=== PATIENT | female | born 1950 ===

== ENCOUNTER 2024-11-03 14:01 | Emergency (ER) | payer MEDICARE, OTHER, SELFPAY ==
[2024-11-03 14:05] VITALS: BP 178/92
--- NOTE | 2024-11-03 15:34 | ED.GENMED ---
History of Present Illness
General
Chief Complaint: Musculo-Skeletal Complaint
Time Seen by Provider: 11/03/24 15:22
History of Present Illness
History of Present Illness:
74-year-old female presents to the emergency department for evaluation of left anterior lower leg pain, she struck the mathew against the end of the car 6 days ago and over the past few days it has become increasingly painful and swollen. She does
nothing entire leg has improved and swelling. She is not on anticoagulants. No fevers
Review of Systems
Review of Systems
Allergies reviewed?: Yes
All Other Systems: ROS reviewed and negative except as documented in HPI and ROS
Phy Exam
Physical Exam
Physical Exam:
GEN: Well appearing, NAD, WDWN
HEENT: Oral mucosa moist, no scleral icterus
Cardiac: Regular rate
Lung: No respiratory distress, no tachypnea
MSK: Swelling and induration of the left anterior lower leg with mild overlying erythema and warmth, moderately tender to palpation. No pain with passive stretch at the left ankle, normal left knee and left ankle range of motion without pain
Skin: Good color, no pallor or jaundice, no rashes
Neuro: AO x3, moves all extremities freely
Psych: Calm, cooperative
Course
Vital Signs
Initial and Last Documented VS:
Initial Vital Signs
Temp Pulse Resp BP Pulse Ox
98.2 F 94 16 178/92 95
11/03/24 14:05 11/03/24 14:05 11/03/24 14:05 11/03/24 14:05 11/03/24 14:05
Last Documented Vital Signs
Temp Pulse Resp BP Pulse Ox
98.2 F 94 16 178/92 95
11/03/24 14:05 11/03/24 14:05 11/03/24 14:05 11/03/24 14:05 11/03/24 14:05
MDM/Problems Addressed
MDM/Problems Addressed:
Most likely hematoma, given acutely worsening symptoms we will treat this as an infected hematoma, no clinical evidence of compartment syndrome, no indication for imaging, no indication to workup for DVT. Discussed supportive care, will treat with
prophylactic antibiotics
*Critical Care Note
Total Time (30-74mins, 75-104mins- exclusive of procedures): Not Applicable
ED Attending Note
-
Portions of this chart may have been created with voice recognition software.� Occasional wrong word or��sound alike� substitutions may have occurred due to the inherent limitations of voice recognition software.
Discharge Plan
Departure
Patient Disposition: Home (Routine Discharge)
Date of Disposition: 11/03/24
Time of Disposition: 15:35
Patient with high blood pressure during this ER visit?: No
Discharge Problem:
Infected hematoma
Instructions: Hematoma
Prescriptions:
New
cephalexin 500 mg capsule
500 mg PO Q8H 5 Days Qty: 15 0RF
Activity Restrictions/Additional Instructions:
Elevate and ice
If symptoms dramatically worsen, or if you suddenly cannot walk, return to the ER
Interventions
Interventions:
*Risk Screen - Suicide Last Done: 11/03/24 14:05
*Neglect/Abuse Screening Last Done: 11/03/24 14:05
*Nursing Disposition Last Done: 11/03/24 15:41
ED-Musculoskeletal Assessment Last Done: 11/03/24 15:29
Discharge Date and Time
Discharge Date/Time: 11/03/24 16:17
Print Language: MICRONESIAN
== END 2024-11-03 16:17 | disposition home or self-care (01) ==
LOC: EMR 14:01
PROVIDERS: EMERGENCY PHYSICIAN Emergency Medicine; FAMILY PHYSICIAN Family Medicine
DX: S80.12XA Contusion of left lower leg, initial encounter (principal); X58.XXXA Exposure to other specified factors, initial encounter
CPT/HCPCS: 99282